=== PATIENT | female | born 1995 | race Caucasian/White ===

== ENCOUNTER 2021-02-19 14:14 | Emergency (ER) | payer MEDICAID, SELFPAY ==
[~2021-02-19] VITALS: Ht 167.6 cm; Wt 59.0 kg
[2021-02-19 14:15] VITALS: BP_SYST 110
--- NOTE | 2021-02-19 14:15 | NUR ---
BROUGHT BACK TO OUTSIDE TRIAGE TENT AND TRIAGED. AWAITING ER BED ASSIGNMENT
--- NOTE | 2021-02-19 14:54 | NUR ---
DR PICKENS OUT TO SEE PT IN TRIAGE TENT
--- NOTE | 2021-02-19 19:00 | NUR ---
PT ELOPED AT THIS TIME. UNABLE TO FIND PT AT THIS TIME.
== END 2021-02-19 19:00 | disposition left against medical advice (07) ==
LOC: SED 14:14
DX: R07.89 Other chest pain (principal)
CPT/HCPCS: 71045; 93005; 99283